=== PATIENT | female | born 1950 | race Two or more races ===

== ENCOUNTER 2018-04-16 08:37 | Outpatient (CLI) | payer OTHER | END 2018-04-16 08:40 | disposition home or self-care (01) | LOC: SONOGRAMA 08:37 | DX: E04.2 Nontoxic multinodular goiter (principal) ==

== ENCOUNTER 2023-06-28 08:31 | Outpatient (CLI) | payer OTHER | END 2023-06-28 08:35 | disposition home or self-care (01) | LOC: SONOGRAMA 08:31 | PROVIDERS: ATTEND Pathology Anatomic Pathology & Clinical Pathology | DX: D34 Benign neoplasm of thyroid gland (principal); E04.9 Nontoxic goiter, unspecified ==